=== PATIENT | female | born 1950 | race Caucasian/White ===

== ENCOUNTER 2017-03-08 12:09 | Emergency (ER) | payer OTHER ==
[~2017-03-08] VITALS: Ht 175.3 cm; Wt 83.9 kg
--- NOTE | ~2017-03-08 | EKG ---
[place] [address] [facility] [place] [address] ELECTROCARDIOGRAM REPORT Name: HERLINDA ARENAS Room #: DEP [facility]#: [id number] Admission: 03/08/17 Attend Phys: Discharge: 03/08/17 Date of : 50 Report #: [id number] THIS REPORT FOR: //name// [facility] ED Test Date: 2017-03-08 Test Time: 12:25:16 Pat Name: HERLINDA ARENAS Department: Room: Gender: F Primary Clinician: Davin GUERIN : 1950 Requested By: Kinjal Valle Order Number: [id number] MD: Winston Shannon Measurements Intervals [place] Rate: 79 P: 44 SC: 168 QRS: -4 QRSD: 113 T: 23 QT: 394 QTc: 452 Interpretive Statements Sinus rhythm Borderline intraventricular conduction delay RSR' in V1 or V2, right VCD Compared to ECG 05/15/2014 20:25:33 no significant change was found Electronically Signed On 03-09-2017 10:09:11 CDT by Winston Shannon [email or web address] <ELECTRONICALLY SIGNED> By: Winston Shannon MD, [facility] 03/09/17 1009 1225 1225 Winston Shnanon MD, [facility] /EPI
[~2017-03-08 12:09] MED LIST: ADVAIR 250-501 EACH; ALBUTEROL INH; APAP W/CODEINE1 TA2 PO; APAP650 PO; AZELAST NASAL137 MC1 NASAL; BENICAR20 MG PO; CARVEDILOL12.5 MG PO; CENTRUM SILVER1 EAC1 PO; CENTRUM SILVER1 EAC4 PO; CLARITIN10 MG PO; CO Q-10100 MG; CO Q-10100 MG PO; COLACE100 MG PO; CRESTOR10 MG PO; DILTIAZEM 24HR180 M2 PO; ELIQUIS5 MG PO; FISH OIL 500 M1 EACH PO; FLOMAX0.4 MG PO; FLONASE 0.05%50 MCG NASAL; HYCET 7.5 MG-3473 ML PO; HYDROCHLOROTHIA25 M2 PO; K-DUR 20 MEQ T20 MEQ PO; KLOR-CON 10 ER10 MEQ PO; LANTUS SOL100 UNIT/1 SQ; LEVOTHYROXINE0.05 MG PO; LIPITOR10 MG PO; MEDROLDOSEPACK PO; MUCOSA400 MG PO; NORCO 5-325 TA1 EACH PO; NORVASC10 MG PO; NOVOLOG100 UNIT/1 SUBQ; OS-CAL 500+D C1 EACH PO; PANTOPRAZOLE SO40 M1 PO; PRAVACHOL20 MG; PRAVACHOL20 MG PO; PREDNISONE 5 MG5 M1; PRINZIDE 20-251 EACH PO; REMERON15 M2 PO; REMERON15 MG PO; RESTASIS1 EACH OPHTHALMIC; SPIRIVA; SPIRIVA INH; SYMBICORT160 MCG/4. INH; TRAMADOL 50 MG50 MG PO; TRAVATAN Z5 ML OP; TRUSOPT5 ML OP; TYLENOL325 MG PO; VENTOLIN HFA 1818 GM INH; VENTOLIN HFA INH8 GM; XANAX 0.25 MG0.25 MG PO; XANAX 0.5 MG0.5 M1; XANAX 0.5 MG0.5 M1 PO; XARELTO20 MG; XOPENEX HF1 UDINHALE INH; XOPENEX0.63 MG/3 INH; ZANTAC 150MG T150 M1 PO; ZITHROMAX250 MG; ZPAK PO
[2017-03-08 12:42] LABS: ABSOLUTE NEUTROPHILS 4.1 thou/uL (1.4-8.2); EOSINOPHILS 1.3 % (0.0-3.0); HEMATOCRIT 39.6 % (37.0-47.0); HEMOGLOBIN 13.3 gm/dL (12.0-15.0); LYMPHOCYTES 26.4 % (24.0-44.0); MCH 29.9 pg (26.0-34.0); MCHC 33.6 g/dL (28.0-37.0); MCV 88.8 fL (80.0-100.0); MONOCYTES 8.1 % (1.0-8.0); PLATELET COUNT 219 thou/uL (150-400); POLYS 63.2 % (36.0-66.0); RBC 4.46 mil/uL (4.20-5.00); RDW 13.9 % (10.5-14.5); WBC 6.5 thou/uL (4.0-11.0)
[2017-03-08 12:43] LABS: MANUAL DIFF NO
[2017-03-08 12:52] LABS: ANION GAP 11 mmol/L (7-16); BUN 18 mg/dL (7-18); CALCIUM 9.4 mg/dL (8.5-10.1); CHLORIDE 106 mmol/L (98-107); CO2 25 mmol/L (21-32); CREATININE 0.9 mg/dL (0.6-1.0); GLUCOSE 112 mg/dL (74-106); POTASSIUM 3.9 mmol/L (3.5-5.1); SODIUM 142 mmol/L (136-145)
[2017-03-08 13:00] LABS: TROPONIN-I < 0.04 ng/mL (<0.04-0.07)
[2017-03-08] MEDS ORDERED: PREDNISONE 5 MG5 M1 PO (13:37)
== END 2017-03-08 14:05 | disposition home or self-care (01) ==
LOC: ER 12:09
PROVIDERS: Emergency Medicine
DX: J44.9 Chronic obstructive pulmonary disease, unspecified (principal); I10 Essential (primary) hypertension; J45.909 Unspecified asthma, uncomplicated; K21.9 Gastro-esophageal reflux disease without esophagitis; I48.91 Unspecified atrial fibrillation; F32.9 Major depressive disorder, single episode, unspecified; F41.9 Anxiety disorder, unspecified; E11.9 Type 2 diabetes mellitus without complications; Z85.3 Personal history of malignant neoplasm of breast; Z88.8 Allergy status to other drugs, medicaments and biological substances; Z88.0 Allergy status to penicillin; Z88.2 Allergy status to sulfonamides; Z87.891 Personal history of nicotine dependence

== ENCOUNTER → 2018-07-09 | Outpatient (CLI) | payer OTHER ==
[~2018-07-09] MED LIST changes: +PREDNISONE 5 MG5 M1 PO
== END ==
LOC: RAD 11:49
DX: J44.9 Chronic obstructive pulmonary disease, unspecified (principal)

== ENCOUNTER → 2018-10-07 | Outpatient (CLI) | payer OTHER | LOC: CAT 10-06 11:46 | DX: J32.9 Chronic sinusitis, unspecified (principal); Z88.1 Allergy status to other antibiotic agents; Z88.2 Allergy status to sulfonamides; Z88.5 Allergy status to narcotic agent; Z88.0 Allergy status to penicillin; Z85.3 Personal history of malignant neoplasm of breast ==

== ENCOUNTER → 2019-01-15 | Outpatient (CLI) | payer OTHER ==
[~2019-01-15] MED LIST changes: +PREDNISONE 20 M20 MG PO
--- NOTE | ~2019-01-15 | MCT ---
[facility] [place] [address] METHACHOLINE CHALLENGE TEST Name: HERLINDA ARENAS Room #: [facility]#: [id number] ������������������ Admission: 01/15/19 ������������������ Attend Phys: Ivan Garcia MD Discharge: ������������������ Date of : 50 Report #: [id number] THIS REPORT FOR: //name// COPIES FOR: AGE:������ 68 SEX/RACE:� F/C Height: in Exam Date: Weight: lbs BTPS: X >> PRE BRONCHODILATOR: PREDICTED BEST %PRED FORCED VITAL CAPACITY (FRC) L LPM % FORCED EXP VOL/SEC (FEV1) L FEV/FVC % MAX MID-EXP FLOW (FEF 25-75) L/SEC L/SEC % PEAK EXP FLOW RATE (FEF MAX) L/MIN L/MIN MED-VC RATIO (FEF 50/FEF 50) .09 Baseline: Phenol Saline Level 1: 0.025 mg/ml BEST %PRED %CHANGE BEST %PRED %CHANGE FVC 5.19 L 155 % 3 % FVC 5.07 L 152 % -2 % FEV1 3.56 L 147 % 0 % FEV1 3.58 L 148 % 1 % Level 2: 0.25 mg/ml Level 3: 2.5 mg/ml BEST %PRED %CHANGE BEST %PRED %CHANGE FVC 5.11 L 153 % -2 % FVC 4.96 L 149 % -4 % FEV1 3.60 L 149 % 1 % FEV1 3.46 L 143 % -3 % . Level 4: 10 mg/ml Level 5: 25 mg/ml BEST %PRED %CHANGE BEST %PRED %CHANGE FVC 4.95 L 148 % -5 % FVC 5.00 L 150 % -4 % FEV1 3.48 L 144 % -2 % FEV1 3.47 L 143 % -3 % Post Bronchodilator: 1st Treatment Post Bronchodilator: 2nd Treatment BEST %PRED %CHANGE BEST %PRED %CHANGE FVC 4.82 L 144 % -7 % FVC L % % FEV1 3.45 L 142 % -3 % FEV1 L % % Post Bronchodilator: 3rd Treatment BEST %PRED %CHANGE [facility] [address] [place] [address] METHACHOLINE CHALLENGE TEST Name: HERLINDA ARENAS Room #: [facility].#: [id number] ������������������ Admission: 01/15/19 ������������������ Attend Phys: Ivan Garcia MD Discharge: ������������������ Date of : 50 Report #: [id number] FVC L % % FEV1 L % % ��������������������������������������������� ���������������������������������������� By: ��������������������������������������������� D: /CD
== END ==
LOC: PULREHAB 09:40
DX: J45.40 Moderate persistent asthma, uncomplicated (principal)

== ENCOUNTER 2019-01-17 16:23 | Emergency (ER) | payer OTHER ==
[~2019-01-17] VITALS: Ht 175.3 cm; Wt 81.7 kg
[~2019-01-17 16:23] MED LIST changes: -PREDNISONE 20 M20 MG PO
[2019-01-17 17:06] LABS: ABSOLUTE NEUTROPHILS 6.7 thou/uL (1.4-8.2); BASOPHILS 0.7 % (0.0-2.0); EOSINOPHILS 0.2 % (0.0-3.0); HEMATOCRIT 36.7 % (37.0-47.0); HEMOGLOBIN 12.3 gm/dL (12.0-15.0); LYMPHOCYTES 13.2 % (24.0-44.0); MCH 29.2 pg (26.0-34.0); MCHC 33.4 g/dL (28.0-37.0); MCV 87.4 fL (80.0-100.0); MONOCYTES 5.3 % (1.0-8.0); PLATELET COUNT 256 thou/uL (150-400); POLYS 80.6 % (36.0-66.0); RBC 4.21 mil/uL (4.20-5.00); RDW 14.1 % (10.5-14.5); WBC 8.2 thou/uL (4.0-11.0)
[2019-01-17 17:13] LABS: ANION GAP 11 mmol/L (7-16); BUN 24 mg/dL (7-18); CALCIUM 9.6 mg/dL (8.5-10.1); CHLORIDE 101 mmol/L (98-107); CO2 25 mmol/L (21-32); CREATININE 0.9 mg/dL (0.6-1.0); GLUCOSE 130 mg/dL (74-106); POTASSIUM 3.9 mmol/L (3.5-5.1); SODIUM 137 mmol/L (136-145)
[2019-01-17 17:22] LABS: TROPONIN-I <0.06 ng/mL (<0.06)
[2019-01-17] MEDS ORDERED: PREDNISONE 20 M20 MG PO (17:55)
[2019-01-17 18:10] VITALS: BP 118/61
--- NOTE | 2019-01-18 13:34 | EKG ---
[address] [email or web address] [address] ELECTROCARDIOGRAM REPORT Name: HERLINDA ARENAS Room #: DEP [facility]#: [id number] ������������������ Admission: 01/17/19 ������������������ Attend Phys: Discharge: 01/17/19 ������������������ Date of : 50 Report #: [id number] ����������������������������������������������������������������� [id number] THIS REPORT FOR: //name// [facility] ED Test Date: 2019-01-17 Test Time: 17:10:42 Pat Name: HERLINDA ARENAS Department: Room: Gender: F Meat [employer]: gordon : 1950 Requested By: Ana Paula Allan Order Number: [id number] MD: Winston Shannon Measurements Intervals [place] Rate: 72 P: 54 MS: 184 QRS: 19 QRSD: 107 T: 35 QT: 417 QTc: 457 Interpretive Statements Sinus rhythm RSR' in V1 or V2, right VCD Compared to ECG 03/08/2017 12:25:16 No significant change was found Electronically Signed On 01-18-2019 13:34:29 CDT by Winston Shannon [email or web address] ��������������������������������������������� <ELECTRONICALLY SIGNED> ���������������������������������������� By: Winston Shannon MD, [facility] ��������������������������������������������� 01/18/19 1334 171 09 Winston Shannon MD, [facility] /EPI
== END 2019-01-17 18:10 | disposition home or self-care (01) ==
LOC: ER 16:23
PROVIDERS: Student in an Organized Health Care Education/Training Program
DX: J30.9 Allergic rhinitis, unspecified (principal); M19.90 Unspecified osteoarthritis, unspecified site; I10 Essential (primary) hypertension; J44.9 Chronic obstructive pulmonary disease, unspecified; K21.9 Gastro-esophageal reflux disease without esophagitis; G47.30 Sleep apnea, unspecified; I48.91 Unspecified atrial fibrillation; F32.9 Major depressive disorder, single episode, unspecified; F41.9 Anxiety disorder, unspecified; E11.9 Type 2 diabetes mellitus without complications; G47.00 Insomnia, unspecified; Z85.3 Personal history of malignant neoplasm of breast; Z87.891 Personal history of nicotine dependence; Z88.0 Allergy status to penicillin; Z88.2 Allergy status to sulfonamides; Z88.8 Allergy status to other drugs, medicaments and biological substances

== ENCOUNTER → 2020-06-20 | Outpatient (CLI) | payer OTHER ==
[~2020-06-20] MED LIST changes: +PREDNISONE 20 M20 MG PO
== END ==
LOC: CAT 07:38
PROVIDERS: ATTEND Internal Medicine
DX: Z12.2 Encounter for screening for malignant neoplasm of respiratory organs (principal); J47.9 Bronchiectasis, uncomplicated; J84.10 Pulmonary fibrosis, unspecified; Z87.891 Personal history of nicotine dependence

== ENCOUNTER → 2021-07-19 | Outpatient (CLI) | payer OTHER | LOC: CAT 11:11 | PROVIDERS: ATTEND Internal Medicine | DX: Z12.2 Encounter for screening for malignant neoplasm of respiratory organs (principal); Z87.891 Personal history of nicotine dependence; K44.9 Diaphragmatic hernia without obstruction or gangrene ==